=== PATIENT | female | born 1945 | race Caucasian/White ===

== ENCOUNTER → 2016-07-14 | Outpatient (CLI) | payer MEDICARE ==
--- NOTE | 2016-07-14 11:28 | KCIC ---
EXAM: Lumbar spine MRI without contrast. HISTORY: Radiculopathy. TECHNIQUE: Multiplanar, multisequence magnetic resonance imaging of the lumbar spine was performed without contrast. COMPARISON: None. FINDINGS: There is mild S-shaped lumbar scoliosis. There is slight retrolisthesis of T12 on L1 and L2 on L3. There is complete loss of the disc space at L5-S1. There is endplate remodeling with disc space narrowing, osteophytosis and Schmorl's node formation predominantly at L3-L4 and L4-L5. No suspicious osseous lesion is seen. At T12-L1, there is a posterior central disc protrusion superimposed on a disc bulge and endplate remodeling. There is mild facet arthropathy. There is mild right foraminal stenosis. At L1-L2, there is a left paracentral disc protrusion superimposed on a disc bulge and endplate remodeling. There is minimal facet arthropathy. There is no stenosis. At L2-L3, there is a posterior to right paracentral disc protrusion and annular tear superimposed on a disc bulge and endplate osteophytosis. There is mild facet arthropathy. There is hypertrophy of the ligament of flavum. There is mild bilateral foraminal stenosis. There is mild central canal stenosis. At L3-L4, there is a diffuse disc bulge and endplate osteophytosis. There is moderate to severe facet arthropathy. There is hypertrophy of the ligament flavum. There is mild lateral foraminal stenosis. There is moderate central canal stenosis. At L4-L5, there is a diffuse disc bulge and endplate osteophytosis. There is moderate right and severe left facet arthropathy. There is mild bile foraminal stenosis. There is mild central canal stenosis. At L5-S1, there is noninstrumented fusion across the disc space. There is mild left facet arthropathy. There is no stenosis. IMPRESSION: 1. Multilevel degenerative change throughout the lower thoracic and lumbar spine, resulting in stenosis as described above. 2. Mild S-shaped lumbar scoliosis. Electronically signed by: Kaya Ying MD (07/14/2016 11:25 AM)
== END | disposition home or self-care (01) ==
LOC: KCIC MRI 09:53
PROVIDERS: ATTEND Anesthesiology Pain Medicine
DX: M54.16 Radiculopathy, lumbar region (principal); M48.06 Spinal stenosis, lumbar region; M41.86 Other forms of scoliosis, lumbar region; M47.896 Other spondylosis, lumbar region; M47.894 Other spondylosis, thoracic region; M12.88 Other specific arthropathies, not elsewhere classified, other specified site
CPT/HCPCS: 72148

== ENCOUNTER → 2016-08-02 | Outpatient (CLI) | payer MEDICARE ==
--- NOTE | 2016-08-02 13:12 | KCIC ---
Two-view right hip HISTORY: Right hip pain for one year. Generalized bone demineralization. Degenerative changes at the right hip with mild axial joint space narrowing and mild osteophytosis. No evidence of acute fracture or aggressive bone destruction. No significant soft tissue abnormality is identified. Incidentally noted are enthesophytes at the greater trochanter and inferior pubic ramus. IMPRESSION: Primary osteoarthritis. Electronically signed by: Emigdio Hills MD (08/02/2016 1:08 PM)
== END | disposition home or self-care (01) ==
LOC: KCIC 12:35
PROVIDERS: ATTEND Anesthesiology Pain Medicine
DX: M16.11 Unilateral primary osteoarthritis, right hip (principal)
CPT/HCPCS: 73502